=== PATIENT | male | born 1975 | race American Indian/Alaskan Native ===

== ENCOUNTER 2018-08-18 23:19 | Emergency (ER) | payer BC ==
[2018-08-18] MEDS ORDERED: Amoxicillin-Clav 875-125 mg Tab PO STA (23:49)
[2018-08-18] MEDS ORDERED: Rabies Immune Globulin 150 INTLU/ML VIAL IM STA (23:50)
[2018-08-18 23:52] VITALS: BP 134/82
[2018-08-18] MEDS ORDERED: Bacitracin 500 Units/gm Oint Foilpak UD TOP ONE (23:52)
[2018-08-19] MEDS ORDERED: Amoxicillin-Clav 875-125 mg Tab PO ONE (00:03)
[2018-08-19] MEDS ORDERED: Bacitracin 500 Units/gm Oint Foilpak UD ONE (00:06)
[2018-08-19] MEDS ORDERED: Tdap Vaccine 0.5 ml Vial (10-64 yrs) IM ONE (00:40)
[2018-08-19] MEDS ORDERED: Tetanus/Diphtheria Toxoids 0.5 ml Syringe IM ONE (00:52)
--- NOTE | 2018-08-19 01:12 | C.PDOC ---
History Of Present Illness 42 year old male presents to the ED for an evaluation of dog bite to the left bicep area sustained this morning in [place] by a family's dog. Reports he doubts the dog was vaccinated. Denies any fever, chills, or any other symptoms. last tdap more than 10 yrs Time Seen by Provider: 08/18/18 23:36 Chief Complaint (Nursing): Bite History Per: Patient History/Exam Limitations: no limitations Onset/Duration Of Symptoms: Hrs Location Of Injury: Left: Arm (dog bite to left bicep) Quality Of Symptoms: Painful - Animal Bite Description Of The Attack: Unprovoked Attack Description Of The Animal: Family Pet Reports Animal's Immunization Status: Unknown Past Medical History Reviewed: Historical Data, Nursing Documentation, Vital Signs Vital Signs: Last Vital Signs Temp 97.5 F L 08/18/18 23:23 Pulse 64 08/18/18 23:23 Resp 20 08/18/18 23:23 BP 134/82 08/18/18 23:23 Pulse Ox 98 08/18/18 23:23 - Medical History PMH: No Chronic Diseases Surgical History: No Surg Hx Family History: States: No Known Family Hx - Social History Hx Alcohol Use: Yes Hx Substance Use: No - Immunization History Hx Tetanus Toxoid Vaccination: No Hx Influenza Vaccination: No Hx Pneumococcal Vaccination: No Review Of Systems Constitutional: Negative for: Fever, Chills Skin: Positive for: Other (dog bite to left bicep) Physical Exam - Physical Exam Appears: Non-toxic, No Acute Distress Skin: Warm, Dry, Other (bite hayden to the left bicep area in the medial upper arm, ecchymotic on edges with abrasions that correspond to teeth soler ) Head: Atraumatic, Normacephalic Neck: Supple Chest: Symmetrical, No Tenderness Extremity: Normal ROM, Tenderness (left upper arm), Capillary Refill (less than 2 sec to left arm ), No Deformity Extremity: Bilateral: Normal ROM Pulses: Left Radial: Normal, Right Radial: Normal Neurological/Psych: Oriented x3, Normal Speech, Normal Cognition, Normal Motor, Normal Sensation ED Course And Treatment O2 Sat by Pulse Oximetry: 98 (RA) Pulse Ox Interpretation: Normal Medical Decision Making Medical Decision Making: Plan - Tetanus vaccination IM - Rabies Immune Globulin IM - Rabies Vaccine IM - Ibuprofen 600mg PO - Bacitracin - Augmentin 1 tab PO - Tylenol 975mg PO Patient instructed on wound care. Return to ER for any signs of infection, such as redness, swelling, fever or any other concerns. Return to ER for further rabies vaccines. Disposition Counseled Patient/Family Regarding: Diagnosis, Need For Followup, Rx Given - Disposition Referrals: [facility] [Outside] Disposition: HOME/ ROUTINE Disposition Time: 01:13 Condition: GOOD Additional Instructions: Keep wound clean and dry. Apply bacitracin 1-2 times a day. Take antibiotics until completed. Return on day 3 (08/21), day 7 (08/25) and day 14 (Sep 01) for the other 3 rabies vaccines. Tylenol or Motrin for pain. Return to ER for any signs of infection, such as redness, swelling, fever or any other concerns. Prescriptions: Amoxicillin/Clavulanate [Augmentin 875 MG-125 MG] 1 tab PO BID #14 tab Instructions: Animal Bites (DC), Rabies Immune Globulin (Human), Rabies Vaccine Forms: [facility] (Maori), General Discharge Instructions - Clinical Impression Clinical Impression: Dog bite of arm - PA / CUSTOMER SUPPORT COORDINATOR / Resident Statement MD/DO has reviewed & agrees with the documentation as recorded. - Scribe Statement The provider has reviewed the documentation as recorded by the Stephanieiblevi Gan All medical record entries made by the Татьяна were at my direction and personally dictated by me. I have reviewed the chart and agree that the record accurately reflects my personal performance of the history, physical exam, medical decision making, and the department course for this patient. I have also personally directed, reviewed, and agree with the discharge instructions and disposition.
[2018-08-19 01:31] VITALS: PULSE 65; RESP 16; TEMP 98.2
[2018-08-19 01:38] VITALS: O2SAT 98
== END 2018-08-19 01:30 | disposition home or self-care (01) ==
LOC: C.ER 23:19
DX: S41.152A Open bite of left upper arm, initial encounter (principal); W54.0XXA Bitten by dog, initial encounter

== ENCOUNTER 2018-08-21 18:02 | Emergency (ER) | payer BC ==
[2018-08-21 18:09] VITALS: BP 133/86; PULSE 59; RESP 18; TEMP 97.5; O2SAT 100
--- NOTE | 2018-08-21 18:43 | C.PDOC ---
History Of Present Illness 42 year old male presents to the ED to continue his rabies vaccination series. Patient states he sustained a dog bite to his left upper inner arm and was seen in the ED 3 days ago. Patient returns to the ED for his second rabies vaccine. He denies fever, chills, discharge. Time Seen by Provider: 08/21/18 18:12 Chief Complaint (Nursing): Rabies Vaccine Series History Per: Patient History/Exam Limitations: no limitations Onset/Duration Of Symptoms: Days Current Symptoms Are (Timing): Still Present Additional History Per: Patient Past Medical History Reviewed: Historical Data, Nursing Documentation, Vital Signs Vital Signs: Last Vital Signs Temp 97.5 F L 08/21/18 18:07 Pulse 59 L 08/21/18 18:07 Resp 18 08/21/18 18:07 BP 133/86 08/21/18 18:07 Pulse Ox 100 08/21/18 18:07 - Medical History PMH: No Chronic Diseases Surgical History: No Surg Hx Family History: States: Unknown Family Hx - Social History Hx Alcohol Use: Yes Hx Substance Use: No - Immunization History Hx Tetanus Toxoid Vaccination: No Hx Influenza Vaccination: No Hx Pneumococcal Vaccination: No Review Of Systems Constitutional: Negative for: Fever, Chills Skin: Positive for: Other (rabies vaccine s/p dog bite ) Physical Exam - Physical Exam Appears: Non-toxic, No Acute Distress Skin: Other (removed covered band-aid: healing dog-bite to left upper inner arm. no signs of infection ) Extremity: Normal ROM Neurological/Psych: Oriented x3, Normal Speech, Normal Cognition ED Course And Treatment O2 Sat by Pulse Oximetry: 100 (on RA) Pulse Ox Interpretation: Normal Progress Note: Rabies vaccination IM given. Patient instructed to return on Sunday for 3rd vaccination. Disposition - Disposition Disposition: HOME/ ROUTINE Disposition Time: 18:42 Condition: STABLE Additional Instructions: Return to ED to complete your rabies vaccinations on 08/25/18 and 09/01/18. Return to ED if feel worse. Instructions: Rabies Vaccine Forms: [facility] (Kiswahili) - Clinical Impression Clinical Impression: Rabies vaccination - PA / PELLET PRESS OPERATOR / Resident Statement MD/DO has reviewed & agrees with the documentation as recorded. - Scribe Statement The provider has reviewed the documentation as recorded by the Scribe (Capri Reid) All medical record entries made by the Scribe were at my direction and personally dictated by me. I have reviewed the chart and agree that the record accurately reflects my personal performance of the history, physical exam, medical decision making, and the department course for this patient. I have also personally directed, reviewed, and agree with the discharge instructions and disposition.
== END 2018-08-21 19:03 | disposition home or self-care (01) ==
LOC: C.ER 18:02
DX: Z23 Encounter for immunization (principal)